=== PATIENT | female | born 1960 | race Caucasian/White ===

== ENCOUNTER 2018-05-08 19:17 | Observation (INO) | payer OTHER ==
[~2018-05-08] VITALS: Ht 162.6 cm; Wt 71.8 kg
[~2018-05-08 19:17] MED LIST: ADVAIR 100-501 EACH INH; ALPRAZOLAM0.25 MG PO; BENTYL10 MG PO; BENZONATATE100 MG PO; BUPROPION HCL100 MG PO; COREG12.5 MG PO; DIOVAN HCT 1601 EAC1 PO; DRONABINOL2.5 MG PO; MELOXICAM7.5 MG PO; NORCO 5-325 TA1 EACH PO; PANTOPRAZOLE SO40 MG PO; PROAIR HFA INH8.5 GM INH; SUCRALFATE1 GM PO; SUMATRIPTAN SUC25 MG PO; XARELTO20 MG PO; ZOFRAN ODT4 MG PO
[2018-05-08] MEDS ORDERED: ONDANSETRON HCL INJ 2 MG/ML VIAL IV STA (19:28)
[2018-05-08] MEDS ORDERED: SODIUM CHLORIDE 0.9% 1000ML 1,000 ML IV ONE (19:30)
[2018-05-08 19:48] LABS: BASOPHILS % 0.2 % (0.0-1.0); EOSINOPHILS # (AUTO) 0.1 (0.0-0.4); EOSINOPHILS % 0.5 % (0.0-6.0); HEMATOCRIT 31.1 % (34.2-44.1); HEMOGLOBIN 9.5 g/dL (12.0-16.0); LYMPHOCYTES # (AUTO) 0.5 (1.0-3.2); LYMPHOCYTES % 5.1 % (18.0-39.1); MEAN CORPUSCULAR HEMOGLOBIN 26.9 pg (28-32); MEAN CORPUSCULAR HGB CONC 30.5 g/dL (31-35); MEAN CORPUSCULAR VOLUME 88.1 fL (81-99); MONOCYTES # (AUTO) 0.3 (0.2-0.8); MONOCYTES % 2.6 % (4.4-11.3); NEUTROPHILS # (AUTO) 9.7 (2.1-6.9); PLATELET COUNT 210 x10e3/uL (140-360); RED BLOOD COUNT 3.53 x10e6/uL (3.6-5.1); RED CELL DISTRIBUTION WIDTH 16.9 % (11.7-14.4)
[2018-05-08 19:51] LABS: INR 1.11; PROTHROMBIN TIME 13.5 seconds (11.9-14.5)
[2018-05-08 19:52] LABS: PARTIAL THROMBOPLASTIN TIME 30.1 seconds (23.8-35.5)
[2018-05-08] MEDS ORDERED: PANTOPRAZOLE 40 MG 10ML VIAL IV STA (19:54)
--- NOTE | 2018-05-08 20:06 | Diagnostic Imaging Report ---
EXAM: XR CHEST 1 VIEW DATE: 05/08/2018 7:20 PM INDICATION: Hematemesis COMPARISON: CT chest 04/17/2018 FINDINGS: Lines and Tubes: Right chest wall port tip overlying SVC. Heart and Mediastinum: Heart is enlarged. Lungs and Pleura: Coarse opacities in the lung bases present with obscuration left hemidiaphragm/left heart border. Bones and Soft Tissues: No acute findings. IMPRESSION: 1. 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 Superimposed infectious process not excluded. Signed by: Dr. Chuck Ellis MD on 05/08/2018 8:02 PM
[2018-05-08 20:25] LABS: ALANINE AMINOTRANSFERASE 26 IU/L (0-55); ALBUMIN 2.7 g/dL (3.5-5.0); ALBUMIN/GLOBULIN RATIO 0.8 (0.8-2.0); ALKALINE PHOSPHATASE 273 IU/L (40-150); ANION GAP 17.5 mmol/L (8-16); BLOOD UREA NITROGEN 11 mg/dL (7-26); BUN/CREATININE RATIO 14 (6-25); CALCIUM 9.7 mg/dL (8.4-10.2); CARBON DIOXIDE 24 mmol/L (22-29); CHLORIDE 94 mmol/L (98-107); CREATINE KINASE 131 IU/L (29-168); CREATININE, SERUM 0.76 mg/dL (0.57-1.11); EST GLOMERULAR FILTRATION RATE > 60 ML/MIN (60-); GLUCOSE 130 mg/dL (74-118); POTASSIUM 3.5 mmol/L (3.5-5.1); SODIUM 132 mmol/L (136-145)
[2018-05-08 20:48] LABS: BILIRUBIN,URINE NEGATIVE (NEGATIVE); CLARITY,URINE SL CLOUDY (CLEAR); COLOR,URINE YELLOW (YELLOW); KETONES,URINE NEGATIVE (NEGATIVE); LEUKOCYTE ESTERASE ,URINE 2+ (NEGATIVE); NITRITE,URINE NEGATIVE (NEGATIVE); PROTEIN,URINE DIPSTICK TRACE (NEGATIVE); URINE UROBILINOGEN 0.2 mg/dL (0.2 - 1)
[2018-05-08 20:54] LABS: BACTERIA,URINE MANY /HPF; EPITHELIAL CELLS,URINE RARE /LPF; RBC,URINE 0-5 /HPF (0-5); WBC,URINE (MAN) 21-50 /HPF (0-5)
[2018-05-08] MEDS: LEVOFLOXACIN 500MG/D5W 100ML 100 ML IV SCH (21:16)
[2018-05-08] MEDS ORDERED: SODIUM CHLORIDE 0.9% 1000ML 1,000 ML ONE (21:17)
[2018-05-08] MEDS: SODIUM CHLORIDE 0.9% 1000ML 1,000 ML IV SCH (21:17)
[2018-05-08] MEDS ORDERED: SUMATRIPTAN SUCCINATE 25 MG TAB PO PRN (21:30)
[2018-05-08] MEDS ORDERED: MORPHINE SULFATE 2 MG/ML SYR IV PRN (21:30)
[2018-05-08] MEDS ORDERED: VALSARTAN PO PRN (21:30)
[2018-05-08] MEDS ORDERED: [UNRECOGNIZED DRUG - OTHER] PO PRN (21:30)
[2018-05-08] MEDS ORDERED: HYDROCHLOROTHIAZIDE PO PRN (21:30)
[2018-05-08 22:49] VITALS: BP 116/68
[2018-05-08 23:05] VITALS: BP 116/68
[2018-05-08] MEDS: ONDANSETRON HCL INJ 2 MG/ML VIAL IV PRN (23:55)
[2018-05-09] VITALS (8 sets, daily range): BP systolic 98–124; BP diastolic 58–63
[2018-05-09 00:09] LABS: HEMATOCRIT 26.8 % (34.2-44.1); HEMOGLOBIN 8.5 g/dL (12.0-16.0)
[2018-05-09] MEDS ORDERED: HYDROCODONE/APAP 5MG-325MG TAB PO ONE (03:15)
[2018-05-09] MEDS: PANTOPRAZOL 40MG/SOD CHL 0.9% 50 ML IV SCH ×4 (04:15→19:41)
[2018-05-09 05:00] LABS: HEMATOCRIT 25.5 % (34.2-44.1); HEMOGLOBIN 8.2 g/dL (12.0-16.0)
[2018-05-09] MEDS: ONDANSETRON HCL INJ 2 MG/ML VIAL IV PRN ×2 (07:00→22:30)
[2018-05-09] MEDS: SODIUM CHLORIDE 0.9% 1000ML 1,000 ML IV SCH ×2 (07:49→17:07)
[2018-05-09] MEDS: VALSARTAN 160 MG TAB PO SCH (09:00)
[2018-05-09] MEDS ORDERED: FENTANYL 25 MCG/HR PATCH TOP SCH (09:00)
[2018-05-09] MEDS ORDERED: PANTOPRAZOLE 40 MG 10ML VIAL IV SCH (09:00)
[2018-05-09 12:00] LABS: HEMATOCRIT 26.6 % (34.2-44.1); HEMOGLOBIN 8.3 g/dL (12.0-16.0)
[2018-05-09] MEDS ORDERED: MORPHINE SULFATE INJ 4 MG/ML INJ IV PRN (12:00)
[2018-05-09] MEDS: BUPROPION HCL 100 MG TAB PO SCH (12:26)
[2018-05-09] MEDS: HYDROCHLOROTHIAZIDE 25 MG TAB PO SCH (12:26)
[2018-05-09] MEDS: DRONABINOL 2.5MG PO SCH (12:26)
--- NOTE | 2018-05-09 12:29 | Operative Report ---
DATE OF PROCEDURE: May 09, 2018 REFERRING PHYSICIAN: Dr. Eliecer Wayne PROCEDURE PERFORMED: Esophagogastroduodenoscopy with biopsies. INDICATIONS FOR ESOPHAGOGASTRODUODENOSCOPY: History of hematemesis, melena. MEDICATION: Patient was done under MAC. Please see anesthesiologist's note. PROCEDURE: With the patient in left lateral decubitus position, the flexible fiberoptic Olympus gastroscope was introduced into the esophagus under direct visualization without any difficulty. There were some diffuse intense erythema noted in the mid and distal esophagus. The scope was then advanced with ease into the stomach traversing a small sliding hiatal hernia. Mucosa overlying the antrum and the body revealed some diffused erythema and moderate to marked edema and biopsies were obtained and sent to stain for H. pylori. Pylorus appeared to be of normal contour and shape, was intubated with ease and the scope was advanced all the way to the second portion of the duodenum. The edge of the metal stent was noted in the proximal second portion, ampulla. The mucosa overlying the duodenal bulb grossly appeared to be within normal limits. The scope was then withdrawn back into the stomach and retroflexion, mucosa overlying the fundus and the cardia appeared to be within normal limits. The scope was then straightened out. The stomach was decompressed. Scope was subsequently withdrawn. Patient tolerated the procedure well. IMPRESSION 1. Esophagitis. 2. Small sliding hiatal hernia. 3. Gastritis biopsied. Biopsies sent to stain for Helicobacter pylori. PLAN: Follow up histology. Continue PPI therapy. Initiate full liquid diet. Job#: [id number] VAS cc:DR. ELIECER WAYNE
[2018-05-09] MEDS ORDERED: LIDOCAINE HCL 2% LOCAL INJ 5 ML SDV VIAL INJ ONE (13:28)
[2018-05-09] MEDS ORDERED: PROPOFOL IV EMULSION 10 MG/ML 50 ML VIAL ONE (13:28)
[2018-05-09] MEDS ORDERED: MIDAZOLAM HCL 2 MG/2 ML VIAL ONE (14:18)
[2018-05-09] MEDS ORDERED: FENTANYL CITRATE/PF 100MCG/2 ML INJ ONE (14:18)
[2018-05-09 19:18] LABS: HEMATOCRIT 28.4 % (34.2-44.1); HEMOGLOBIN 8.9 g/dL (12.0-16.0)
[2018-05-09] MEDS: LEVOFLOXACIN 500MG/D5W 100ML 100 ML IV SCH (22:00)
[2018-05-10] MEDS: PANTOPRAZOL 40MG/SOD CHL 0.9% 50 ML IV SCH ×5 (00:58→14:25)
[2018-05-10] MEDS: SODIUM CHLORIDE 0.9% 1000ML 1,000 ML IV SCH ×2 (00:58→10:54)
[2018-05-10] MEDS: ONDANSETRON HCL INJ 2 MG/ML VIAL IV PRN ×4 (02:47→16:06)
[2018-05-10 05:00] VITALS: BP 119/69
[2018-05-10 07:14] LABS: HEMATOCRIT 29.7 % (34.2-44.1); HEMOGLOBIN 9.2 g/dL (12.0-16.0); MEAN CORPUSCULAR HEMOGLOBIN 27.6 pg (28-32); MEAN CORPUSCULAR VOLUME 89.2 fL (81-99); RED BLOOD COUNT 3.33 x10e6/uL (3.6-5.1)
[2018-05-10 07:15] LABS: BASOPHILS % 0.2 % (0.0-1.0); EOSINOPHILS # (AUTO) 0.1 (0.0-0.4); EOSINOPHILS % 1.3 % (0.0-6.0); LYMPHOCYTES # (AUTO) 0.3 (1.0-3.2); LYMPHOCYTES % 6.3 % (18.0-39.1); MONOCYTES # (AUTO) 0.4 (0.2-0.8); MONOCYTES % 6.8 % (4.4-11.3); NEUTROPHILS # (AUTO) 4.6 (2.1-6.9); NEUTROPHILS % 84.7 % (38.7-80.0); PLATELET COUNT 149 x10e3/uL (140-360); RED CELL DISTRIBUTION WIDTH 17.2 % (11.7-14.4)
[2018-05-10 07:36] LABS: ANION GAP 13.2 mmol/L (8-16); BLOOD UREA NITROGEN 7 mg/dL (7-26); BUN/CREATININE RATIO 11 (6-25); CALCIUM 8.1 mg/dL (8.4-10.2); CARBON DIOXIDE 22 mmol/L (22-29); CHLORIDE 98 mmol/L (98-107); CREATININE, SERUM 0.61 mg/dL (0.57-1.11); EST GLOMERULAR FILTRATION RATE > 60 ML/MIN (60-); GLUCOSE 103 mg/dL (74-118); POTASSIUM 3.2 mmol/L (3.5-5.1); SODIUM 130 mmol/L (136-145)
[2018-05-10 07:55] LABS: % IRON SATURATION 10 % (15-50); IRON 23 ug/dL (50-170); TOTAL IRON BINDING CAPACITY 221 ug/dL (261-478); TRANSFERRIN 158 mg/dL (180-382)
[2018-05-10 08:00] VITALS: BP 120/75
[2018-05-10] MEDS: VALSARTAN 160 MG TAB PO SCH (08:42)
[2018-05-10] MEDS: BUPROPION HCL 100 MG TAB PO SCH (08:43)
[2018-05-10] MEDS: HYDROCHLOROTHIAZIDE 25 MG TAB PO SCH (08:43)
[2018-05-10] MEDS: DRONABINOL 2.5MG PO SCH (08:43)
[2018-05-10] MEDS ORDERED: FENTANYL 25 MCG/HR PATCH TOP SCH (09:00)
[2018-05-10 09:05] VITALS: BP 120/75
[2018-05-10 11:47] VITALS: BP 109/62
[2018-05-10] MEDS ORDERED: POTASSIUM CHLORIDE 20 MEQ TAB CR PO ONE (12:00)
[2018-05-10] MEDS: ALBUTEROL SULFATE HFA 8GM INHALATION AEROSOL INH SCH ×2 (14:30→15:18)
[2018-05-10 16:00] VITALS: BP 124/78
== END 2018-05-10 19:28 | disposition home or self-care (01) ==
LOC: ER 19:17 → IMCU 21:17
PROVIDERS: ADMIT Internal Medicine; ATTEND Internal Medicine
DX: K29.50 Unspecified chronic gastritis without bleeding (principal); N30.00 Acute cystitis without hematuria; R11.2 Nausea with vomiting, unspecified; R33.9 Retention of urine, unspecified; Z86.73 Personal history of transient ischemic attack (TIA), and cerebral infarction without residual deficits; E78.5 Hyperlipidemia, unspecified; I10 Essential (primary) hypertension; Z85.3 Personal history of malignant neoplasm of breast; K92.2 Gastrointestinal hemorrhage, unspecified; D64.9 Anemia, unspecified; K21.0 Gastro-esophageal reflux disease with esophagitis; K44.9 Diaphragmatic hernia without obstruction or gangrene
CPT/HCPCS: 36415 ×3; 43239; 51700; 71045; 80048; 80053; 81001; 82270; 82550; 82553; 83540; 84466; 84484; 85014 ×2; 85018 ×2; 85025 ×2; 85610; 85730; 86850; 86900; 87086; 88305; 88312; 93005; 94640; 96374; 99284; G0378 ×3; J1956 ×2; J2001; J2250; J2405 ×3; J7030 ×3

== ENCOUNTER 2018-05-14 19:38 | Emergency (ER) | payer OTHER ==
[~2018-05-14] VITALS: Ht 162.6 cm; Wt 71.7 kg
== END 2018-05-14 21:40 | disposition home or self-care (01) ==
LOC: FSED 19:38
DX: R33.9 Retention of urine, unspecified (principal); R10.2 Pelvic and perineal pain
CPT/HCPCS: 51700; 99283